=== PATIENT | female | born 1950 | race American Indian/Alaskan Native ===

== ENCOUNTER 2016-10-08 11:49 | Emergency (ER) | payer MEDICARE, BC ==
[2016-10-08 12:02] VITALS: BP 176/90
--- NOTE | 2016-10-08 12:14 | EDM.PDOC ---
ED HPI HEAD INJURY - General Chief Complaint: Head Injury Stated Complaint: FELL AND HIT BACK OF HEAD Time Seen by Provider: 10/08/16 12:04 Source of Information: Reports: Patient History Limitations: Reports: No limitations - History of Present Illness INITIAL COMMENTS - FREE TEXT/NARRATIVE: Issue presents for evaluation and treatment of a head injury. Patient reports the injury occurred prior to arrival in the ER. She reports she was walking with her cane. She states that she was leaving [facility]. She states that she fell backwards striking the back of her left head on the floor. Patient states that she did not pass out. She remembers the incident. She reports that she has difficulty with balance and vertigo, however, she is unsure if that is what caused the fall today. The patient reports some pain to the left eye and a headache. She denies any seizures, syncope, chest pain, shortness of breath, palpitations, neck pain, nausea, vomiting or any vision changes. Patient reports that she has double vision in her left eye from wrinkles on her left retina. She reports no change in her vision. Patient reports that she has difficulty with lightheadedness and dizziness. She reports no change in this today. she reports that she sees a primary care provider in [place]. Her last visit was in March. She reports on her EKG, will show an old ME. She's never had an ME. Patient reports that she is not on any blood thinners. She does not take a daily aspirin. She did take ibuprofen this morning. - Related Data Allergies/ADRs: Allergies Allergy/AdvReac Type Severity Reaction Status Date / Time No Known Allergies Allergy Verified 10/08/16 12:02 Home Meds: Home Meds Carboxymethyl/Glycerin/Poly80 [Refresh Optive Advanced Drops] 1 - 2 drop OP QID 10/08/16 [History] Gluc 2KCl/Chondr/Eric Hy/Hy Ac [Glucosamine & Chondroitin Cap] 2 tab PO BID 10/21 [History] Ibuprofen 2 - 4 tab PO Q4H PRN 10/08/16 [History] Losartan/Hydrochlorothiazide [Losartan-HCTZ 50-12.5 MG] 1 each PO DAILY [History] Magnesium 250 mg PO DAILY 10/08/16 [History] Mirtazapine [Remeron] 15 mg PO BEDTIME 10/08/16 [History] [place]-3S/DHA/Epa/Fish Oil [Fish Oil EC 1,200 mg Softgel] 6 tab PO DAILY [History] Vit A/Vit C/Vit E/Zinc/Copper [Preservision] 2 tab PO DAILY 10/08/16 [History] ED ROS GENERAL - Review of Systems Review Of Systems: See Below HEENT: Reports: Eye pain (left). Denies: Vision change (no change; double vision, chronic, reports wrinkles in her left retina) Respiratory: Denies: Shortness of Breath Cardiovascular: Denies: Chest pain, Palpitations GI/Abdominal: Denies: Nausea, Vomiting Musculoskeletal: Denies: neck pain Neurological: Reports: Headache. Denies: Seizure, Syncope ED EXAM, HEAD INJURY - Physical Exam Exam: See Below Exam Limited By: No limitations General Appearance: alert, WD/WN, no apparent distress Head: scalp hematoma (left parietal/occipital, golf ball sized) Nexus Criteria: No: posterior, midline cervical tenderness, evidence of intoxication, altered level of consciousness, focal neurological deficit, painful distracting injuries Eyes: bilateral eye: EOMI, PERRL Ears: normal external exam Nose: normal inspection Throat/Mouth: Normal inspection, Normal voice, No airway compromise Neck: non-tender, normal alignment, normal inspection, limited range of motion ( reports this is chronic, no change). No: spinous processes tender Respiratory: no respiratory distress, lungs clear, normal breath sounds Cardiovascular: normal peripheral pulses, regular rate, rhythm, no murmur Neurologic: alert, normal mood/affect, oriented x 3, other (normal finger to nose testing, normal heel to hennessy testing; roof mechanic strength 5/5 bilaterally, dorsiflexion 5/5 bilaterally, plantar flexion 5/5 bilaterally) Skin: Normal color, Warm/dry - Laureen Coma Score Best Eye Response (Laureen): (4) open spontaneously Best Verbal Response (Mohawk): (5) oriented Best Motor Response ([place]awk): (6) obeys commands EKG INTERPRETATION EKG Date: 10/08/16 Time: 12:55 Rhythm: other (sinus arrhythmia) Rate (beats/min): 73 [place]: LAD-left axis deviation P-wave: present QRS: RBBB (incomplete) ST-T: normal QT: normal Comparison: NA - no prior EKG EKG Interpretation Comments: Sinus arrhythmia at 73 bpm. 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 Reviewed by myself and Dr. He. Course - Vital Signs Last Recorded V/S: Last Vital Signs Temp 36.7 C 10/08/16 11:59 Pulse 80 10/08/16 11:59 Resp 18 10/08/16 11:59 BP 176/90 H 10/08/16 11:59 Pulse Ox 97 10/08/16 11:59 - Orders/Labs/Meds Orders: Active Orders 24 hr Category Date Time Status EKG 12 Lead [EKG Documentation Completion] [RC] STAT Care 10/08/16 12:15 Ordered Chest 1V Frontal [CR] Stat Exams 10/08/16 12:15 Ordered CULTURE URINE [RM] Stat Lab 10/08/16 13:31 Ordered Labs: Laboratory Tests 10/08/16 10/08/16 10/08/16 Range/Units 12:36 12:36 13:05 WBC 6.43 (3.98-10.04) K/mm3 RBC 4.85 (3.98-5.22) M/mm3 Hgb 14.5 (11.2-15.7) gm/L Hct 44.1 (34.1-44.9) % MCV 90.9 (79.4-94.8) fl MCH 29.9 (25.6-32.2) pg MCHC 32.9 (32.2-35.5) g/dl RDW Std Deviation 46.3 (36.4-46.3) fL Plt Count 236 (182-369) K/mm3 MPV 9.9 (9.4-12.3) fl Neut % (Auto) 50.7 (34.0-71.1) % Lymph % (Auto) 38.6 (19.3-51.7) % [place] % (Auto) 8.4 (4.7-12.5) % Eos % (Auto) 1.9 (0.7-5.8) Baso % (Auto) 0.2 (0.1-1.2) % Neut # (Auto) 3.27 (1.56-6.13) K/mm3 Lymph # (Auto) 2.48 (1.18-3.74) K/mm3 [place] # (Auto) 0.54 H (0.24-0.36) K/mm3 Eos # (Auto) 0.12 (0.04-0.36) K/mm3 Baso # (Auto) 0.01 (0.01-0.08) K/mm3 Sodium 142 (136-145) mEq/L Potassium 3.5 (3.5-5.1) mEq/L Chloride 104 (98-107) mEq/L Carbon Dioxide 29 (21-32) mEq/L Anion Gap 12.5 (5-15) BUN 24 H (7-18) mg/dL Creatinine 0.9 (0.55-1.02) mg/dL Est Cr Clr Drug Dosing 61.19 mL/min Estimated GFR (MDRD) > 60 (>60) mL/min BUN/Creatinine Ratio 26.7 H (14-18) Glucose 99 (80-115) mg/dL Calcium 9.4 (8.5-10.1) mg/dL Total Bilirubin 0.6 (0.2-1.0) mg/dL AST 14 L (15-37) U/L ALT 21 (14-59) U/L Alkaline Phosphatase 73 (46-116) U/L Troponin I < 0.017 (0.00-0.056) ng/mL Total Protein 7.5 (6.4-8.2) g/dl Albumin 3.9 (3.4-5.0) g/dl Globulin 3.6 gm/dL Albumin/Globulin Ratio 1.1 (1-2) Urine Color Yellow (Yellow) Urine Appearance Clear (Clear) Urine pH 6.0 (5.0-8.0) Ur Specific [place] 1.025 (1.005-1.030) Urine Protein Negative (Negative) Urine Glucose (UA) Negative (Negative) Urine Ketones Negative (Negative) Urine Occult Blood Negative (Negative) Urine Nitrite Negative (Negative) Urine Bilirubin Negative (Negative) Urine Urobilinogen 0.2 (0.2-1.0) Ur Leukocyte Esterase 2+ H (Negative) Urine RBC 0-5 (0-5) /hpf Urine WBC 0-5 (0-5) /hpf Ur Epithelial Cells 0-5 (0-5) /hpf Urine Bacteria Few (FEW) /hpf Urine Mucus Few (FEW) /hpf Meds: Medications Discontinued Medications Generic Name Dose Route Start Last Admin Trade Name Freq PRN Reason Stop Dose Admin Ibuprofen 400 mg 10/08/16 12:44 10/08/16 12:50 Motrin PO 10/08/16 12:45 400 mg ONETIME ONE Administration - Radiology Interpretation Free Text/Narrative:: CT of the head without contrast impression per Dr. Ding 1. Scalp hematoma posteriorly. 2. No acute intracranial abnormalities seen. No acute findings are seen. Chest 1 view shows no acute intrathoracic process. - Re-Assessments/Exams Free Text/Narrative Re-Assessment/Exam: 10/08/16 13:42 Labs returned. WBC is 6.43, hgb is 14.5 and plts are 236 Sodium is 142, potassium is 3.5 and chloride is 104. Anion gap is 12.5. Glucose is 99. Trop is <0.017 UA has 2+ leuks, negative for nitrites and only few bacteria seen on micro. Sent for culture. Will call if culture is positive. Reviewed the labs, head ct, chest xray and ekg results with the patient. EKG showed a sinus arrhythmia. Will have the patient follow-up with PCP for further evaluation. Patient asks we call her cell phone, number [phone] with urine culture results when available. Will not start abx today. She does not have any symptoms. Will discharge home at this time. Discharge instructions as documented. Departure - Departure Time of Disposition: 13:44 Disposition: Home, Self-Care 01 Condition: good Clinical Impression: Scalp hematoma Referrals: Jonathon Stovall MD [Primary Care Provider] - Forms: ED Department Discharge Additional Instructions: OTC ibuprofen or tylenol as needed. Ice the hematoma 5-10 minutes 3 times a day. Follow-up with your PCP within the next few months. Your EKG showed a sinus arrhythmia. You may require further testing for this. Please discuss with your PCP. We may call you in 2-3 days if your urine shows a UTI. If you do not hear from us assume your culture was normal. Please return to the ER for any changing or worsening symptoms. - My Orders Last 24 Hours: My Active Orders 10/08/16 12:15 EKG 12 Lead [EKG Documentation Completion] [RC] STAT Chest 1V Frontal [CR] Stat 10/08/16 13:31 CULTURE URINE [RM] Stat - Assessment/Plan Last 24 Hours: My Active Orders 10/08/16 12:15 EKG 12 Lead [EKG Documentation Completion] [RC] STAT Chest 1V Frontal [CR] Stat 10/08/16 13:31 CULTURE URINE [RM] Stat
[2016-10-08] MEDS ORDERED: Ibuprofen 400 MG Tab PO ONE (12:44)
--- NOTE | 2016-10-08 12:51 | CT ---
Head CT Technique: Multiple axial sections of the brain were obtained. Intravenous contrast was not utilized. Comparison: No previous intracranial imaging. Findings: Soft tissue hematoma is seen within the posterior scalp. Ventricles along with basal cisterns and sulci over the convexities are mildly prominent. Minimal diminished density is noted within the periventricular white matter compatible with small vessel ischemic demyelination change. No other abnormal parenchymal densities are seen. No evidence of intracranial hemorrhage. No midline shift or mass effect is seen. Bone window settings were reviewed which shows mild mucosal thickening within the posterior right ethmoid sinus. No acute calvarial abnormality is seen. Impression: 1. Scalp hematoma posteriorly. 2. No acute intracranial abnormality is seen. Incidental findings as noted above. Diagnostic code #2
--- NOTE | 2016-10-08 13:50 | CR ---
Chest: Frontal view of the chest was obtained. Comparison: No previous study. Heart size and mediastinum are within normal limits. Lungs are clear. Bony structures are grossly intact. Impression: 1. Nothing acute is identified on frontal chest x-ray. Diagnostic code #1
== END 2016-10-08 13:56 | disposition home or self-care (01) ==
LOC: JD.ED 11:49
DX: S00.03XA Contusion of scalp, initial encounter (principal); W01.198A Fall on same level from slipping, tripping and stumbling with subsequent striking against other object, initial encounter; Z79.899 Other long term (current) drug therapy
CPT/HCPCS: 36415; 70450; 71010; 80053; 81001; 84484; 85025; 87086; 93005; 99285; A9270; 99283